=== PATIENT | female | born 1960 | race Caucasian/White ===

== ENCOUNTER 2018-10-20 11:53 | Emergency (ER) | payer BC, OTHER ==
[2018-10-20] MEDS ORDERED: methylPREDNISolone Sodium Succinate 125 MG/2 ML SDV IM ONE (12:18)
[2018-10-20] MEDS ORDERED: Albuterol/Ipratropium 3.0-0.5 MG/3 ML Neb Soln NEB ONE (12:18)
--- NOTE | 2018-10-20 12:52 | EDM.PDOC ---
ED HPI GENERAL MEDICAL PROBLEM - General Chief Complaint: ENT Problem Stated Complaint: COUGH, LARYNGITIS, CAN'T HARDLY SWALLOW Time Seen by Provider: 10/20/18 12:00 Source of Information: Reports: Patient History Limitations: Reports: No Limitations - History of Present Illness INITIAL COMMENTS - FREE TEXT/NARRATIVE: HISTORY AND PHYSICAL: History of present illness: Patient is a 58-year-old female who presents to the ED today with concern of a weeklong history of cough, sore throat, and a loss of her voice. Patient states that when the symptoms came on she initially saw her primary care provider who told her she had a viral illness. She states that since then she feels that the cough and sore throat have worsened over the past couple days. She states that starting today she has noticed a slight loss of voice. Patient has subjective low-grade fevers at home but has not checked her temperature. Patient denies chest pain, shortness of breath. Denies headache, neck stiff ness , change in vision, syncope, or near syncope. Denies nausea, vomiting, abdominal pain, diarrhea, constipation, or dysuria. Has not noted any blood in urine or stool. Patient has been eating and drinking appropriately. Patient has a history of GERD but denies any other health history.. Review of systems: As per history of present illness and below otherwise all systems reviewed and negative. Past medical history: As per history of present illness and as reviewed below otherwise noncontributory. Surgical history: As per history of present illness and as reviewed below otherwise noncontributory. Social history: See social history for further information Family history: As per history of present illness and as reviewed below otherwise noncontributory. Physical exam: General: Patient is alert, oriented, and in no acute distress. She is sitting comfortably on exam table. HEENT: Atraumatic, normocephalic, pupils equal and reactive bilaterally, negative for conjunctival pallor or scleral icterus, mucous membranes moist, TMs normal bilaterally, throat clear, neck supple, nontender, trachea midline. No drooling or trismus noted. No meningeal signs. No hot potato voice noted but voice does appear "scratchy" Lungs: Wheezing heard throughout all lung cruz, breath sounds equal bilaterally, chest nontender. Heart: S1S2, regular rate and rhythm without overt murmur Abdomen: Soft, nondistended, nontender. Negative for masses or hepatosplenomegaly. Negative for costovertebral tenderness. Pelvis: Stable nontender. Genitourinary: Deferred. Rectal: Deferred. Skin: Intact, warm, dry. No lesions or rashes noted. Extremities: Atraumatic, negative for cords or calf pain. Neurovascular unremarkable. Neuro: Awake, alert, oriented. Cranial nerves II through XII unremarkable. Cerebellum unremarkable. Motor and sensory unremarkable throughout. Exam nonfocal. Notes: Tamiflu was offered to patient but she declines at this time. CXR shows no acute cardiopulmonary process. Supportive care measures were reviewed and discussed. Voices understanding and is agreeable to plan of care. Denies any further questions or concerns at this time. Diagnostics: Influenza, strep, chest x-ray Therapeutics: Duonegerber, Solu-Medrol Prescription: Medrol dose pack, Proair inhaler Impression: Influenza B Plan: 1. Take standard infectious contact precautions as discussed. 2. Please take medication, take as directed. 3. Supportive care measures such as Tylenol and/or ibuprofen as directed for pain and fever management. Encourage small frequent sips of fluids to prevent dehydration. 4. Follow-up with your police officer booking or primary care provider as discussed. Return to the ED as needed and as discussed. Definitive disposition and diagnosis as appropriate pending reevaluation and review of above. Throat Pain Score (Numeric/FACES): 7 - Related Data Allergies Allergy/AdvReac Type Severity Reaction Status Date / Time No Known Allergies Allergy Verified 10/20/18 12:02 Home Meds: Home Meds Omeprazole 40 mg PO DAILY 10/20/18 [History] Past Medical History Gastrointestinal History: Reports: GERD - Infectious Disease History Infectious Disease History: Reports: None - Past Surgical History HEENT Surgical History: Reports: Tonsillectomy Female Surgical History: Reports: Hysterectomy Social & Family History - Family History Family Medical History: Noncontributory - Tobacco Use Smoking Status *Q: Never Smoker - Caffeine Use Caffeine Use: Reports: Coffee - Recreational Drug Use Recreational Drug Use: No ED ROS ENT - Review of Systems Review Of Systems: ROS reveals no pertinent complaints other than HPI. ED EXAM, ENT - Physical Exam Exam: See Below (See dictation) Course - Vital Signs Last Recorded V/S: Last Vital Signs Temp 36.7 C 10/20/18 12:04 Pulse 86 10/20/18 12:04 Resp 16 10/20/18 12:04 BP 133/89 10/20/18 12:04 Pulse Ox 96 10/20/18 12:04 - Orders/Labs/Meds Orders: Active Orders 24 hr Category Date Time Status RT Aerosol Therapy [RC] ASDIRECTED Care 10/20/18 12:18 Active CULTURE STREP A CONFIRMATION [RM] Stat Lab 10/20/18 12:10 Results STREP SCRN A RAPID W CULT CONF [RM] Stat Lab 10/20/18 12:10 Results Meds: Medications Discontinued Medications Generic Name Dose Route Start Last Admin Trade Name Freq PRN Reason Stop Dose Admin Albuterol/Ipratropium 3 ml 10/20/18 12:18 10/20/18 12:23 Duoneb 3.0-0.5 Mg/3 Ml NEB 10/20/18 12:19 3 ml ONETIME ONE Administration Methylprednisolone Sodium Succinate 125 mg 10/20/18 12:18 10/20/18 12:34 Solu-Medrol IM 10/20/18 12:19 125 mg ONETIME ONE Administration Departure - Departure Time of Disposition: 13:15 Disposition: Home, Self-Care 01 Clinical Impression: Influenza B - Discharge Information Instructions: Influenza, Adult, [id number] Referrals: PCP,None [Primary Care Provider] - Forms: ED Department Discharge Additional Instructions: The following information is given to patients seen in the emergency department who are being discharged to home. This information is to outline your options for follow-up care. We provide all patients seen in our emergency department with a follow-up referral. The need for follow-up, as well as the timing and circumstances, are variable depending upon the specifics of your emergency department visit. If you don't have a primary care physician on staff, we will provide you with a referral. We always advise you to contact your personal physician following an emergency department visit to inform them of the circumstance of the visit and for follow-up with them and/or the need for any referrals to a consulting specialist. The emergency department will also refer you to a specialist when appropriate. This referral assures that you have the opportunity for follow-up care with a specialist. All of these measure are taken in an effort to provide you with optimal care, which includes your follow-up. Under all circumstances we always encourage you to contact your private physician who remains a resource for coordinating your care. When calling for follow-up care, please make the office aware that this follow-up is from your recent emergency room visit. If for any reason you are refused follow-up, please contact the [facility] Emergency Department at and asked to speak to the emergency department charge nurse. [facility] [address] [place] [address] [facility] [address] [place] [id number] 1. Take standard infectious contact precautions as discussed. 2. Please take medication, take as directed. 3. Supportive care measures such as Tylenol and/or ibuprofen as directed for pain and fever management. Encourage small frequent sips of fluids to prevent dehydration. 4. Follow-up with your police officer booking or primary care provider as discussed. Return to the ED as needed and as discussed. - My Orders Last 24 Hours: My Active Orders 10/20/18 12:10 CULTURE STREP A CONFIRMATION [RM] Stat STREP SCRN A RAPID W CULT CONF [RM] Stat 10/20/18 12:18 RT Aerosol Therapy [RC] ASDIRECTED - Assessment/Plan Last 24 Hours: My Active Orders 10/20/18 12:10 CULTURE STREP A CONFIRMATION [RM] Stat STREP SCRN A RAPID W CULT CONF [RM] Stat 10/20/18 12:18 RT Aerosol Therapy [RC] ASDIRECTED
--- NOTE | 2018-10-20 13:11 | CR ---
Indication: Pain. Shortness breath. Technique: PA and lateral views the chest were obtained. Comparison: None Findings: The heart is normal in size. The lungs are clear. No infiltrate, pleural effusion, or pneumothorax is identified. Impression: No acute cardiopulmonary process. Dictated by Macy Baeza MD @ Oct 20 2018 1:10PM Signed by Dr. Macy Baeza @ Oct 20 2018 1:11PM
== END 2018-10-20 13:22 | disposition home or self-care (01) ==
LOC: MW.ED 11:53
DX: J10.1 Influenza due to other identified influenza virus with other respiratory manifestations (principal); Z79.899 Other long term (current) drug therapy
CPT/HCPCS: 71046; 87081; 87804; 87880; 94640; 96372; 99283; J2930; J7620-GY

== ENCOUNTER 2022-06-07 07:26 | Day surgery (SDC) | payer BC ==
[~2022-06-07 07:26] MED LIST: Lactated Ringers 1,000 ML IV SCH
[2022-06-07] MEDS ORDERED: Propofol 200 MG/20 ML SDV ONE ×2 (08:30→09:21)
[2022-06-07] MEDS ORDERED: Lidocaine 2% 5 ML SDV ONE (08:30)
== END 2022-06-07 10:20 | disposition home or self-care (01) ==
LOC: MW.SDS 07:26
PROVIDERS: ATTEND Surgery
DX: Z12.11 Encounter for screening for malignant neoplasm of colon (principal); K21.00 Gastro-esophageal reflux disease with esophagitis, without bleeding; K31.A0 Gastric intestinal metaplasia, unspecified; K62.1 Rectal polyp; K57.30 Diverticulosis of large intestine without perforation or abscess without bleeding; K44.9 Diaphragmatic hernia without obstruction or gangrene; K29.70 Gastritis, unspecified, without bleeding; K64.8 Other hemorrhoids; Z79.899 Other long term (current) drug therapy; Z90.710 Acquired absence of both cervix and uterus; Z98.890 Other specified postprocedural states; Z87.891 Personal history of nicotine dependence
CPT/HCPCS: 43239; 45380; J2704; J7120; 00813

== ENCOUNTER 2023-10-17 09:17 | Day surgery (SDC) | payer BC ==
[2023-10-17] MEDS: Lactated Ringers 1,000 ML IV SCH (09:45)
[2023-10-17] MEDS ORDERED: Propofol 200 MG/20 ML SDV ONE (11:26)
== END 2023-10-17 12:40 | disposition home or self-care (01) ==
LOC: MW.SDS 09:17
PROVIDERS: ATTEND Surgery
DX: K29.50 Unspecified chronic gastritis without bleeding (principal); K21.9 Gastro-esophageal reflux disease without esophagitis; K22.70 Barrett's esophagus without dysplasia; K31.7 Polyp of stomach and duodenum; K44.9 Diaphragmatic hernia without obstruction or gangrene; E03.9 Hypothyroidism, unspecified; Z87.891 Personal history of nicotine dependence; Z79.899 Other long term (current) drug therapy
CPT/HCPCS: 43239; J2704; J7120; 00731